=== PATIENT | male | born 1965 ===

== ENCOUNTER 2017-10-16 09:13 | Day surgery (SDC) | payer SELFPAY ==
[2017-10-16] MEDS ORDERED: Lactated Ringer's 500 ML IV ONE ×2 (11:45→12:50)
[2017-10-16] MEDS ORDERED: Lidocaine PF 2% (5 ml) Inj (For Cardiac Arrhy) IV ONE (11:57)
[2017-10-16] MEDS ORDERED: Propofol 10 mg/ml Inj (20 ML) ONE (11:57)
[2017-10-16 12:56] VITALS: TEMP 97
[2017-10-16 13:22] VITALS: BP 117/65; PULSE 54; RESP 17; O2SAT 100
== END 2017-10-16 13:23 | disposition home or self-care (01) ==
LOC: H.ENDO 09:13
PROVIDERS: ATTEND Internal Medicine Gastroenterology
DX: K64.8 Other hemorrhoids (principal); Z86.010 Personal history of colon polyps; R93.3 Abnormal findings on diagnostic imaging of other parts of digestive tract; K30 Functional dyspepsia; K29.50 Unspecified chronic gastritis without bleeding; K44.9 Diaphragmatic hernia without obstruction or gangrene
CPT/HCPCS: 43239; 45378; 88305; J2704; J7120